=== PATIENT | male | born 1960 | race Caucasian/White ===

== ENCOUNTER 2017-12-01 12:38 | Emergency (ER) | payer MEDICARE ==
[~2017-12-01] VITALS: Ht 182.9 cm; Wt 93.6 kg
[2017-12-01 12:53] VITALS: Ht 182.9 cm; Wt 93.6 kg
[2017-12-01] MEDS ORDERED: PRILOSEC2.5 MG (12:55)
[2017-12-01 13:24] LABS: APPEARANCE CLEAR (CLEAR); BILIRUBIN NEGATIVE (NEGATIVE); COLOR YELLOW (YELLOW); GLUCOSE NEGATIVE (NEGATIVE); KETONE NEGATIVE (NEGATIVE); NITRITE NEGATIVE (NEGATIVE); PROTEIN NEGATIVE (NEGATIVE); SPECIFIC GRAVITY 1.005 (1.005-1.020); UROBILINOGEN NORMAL (NORMAL)
[2017-12-01] MEDS ORDERED: HYDROCODONE-IB1 EAC3 PO (15:54)
[2017-12-01] MEDS ORDERED: NEURONTIN 300300 MG PO (15:54)
[2017-12-01] MEDS ORDERED: TORADOL10 MG PO (15:54)
[2017-12-01 16:50] VITALS: BP 132/76
== END 2017-12-01 16:50 | disposition home or self-care (01) ==
LOC: D.ER 12:38
PROVIDERS: Family Medicine
DX: M54.16 Radiculopathy, lumbar region (principal)